=== PATIENT | female | born 1985 | race Asian ===

== ENCOUNTER 2017-02-28 23:06 | Emergency (ER) | payer OTHER ==
[2017-03-01] MEDS ORDERED: Acetaminophen TAB* 325 MG PO ONE (01:44)
--- NOTE | 2017-03-01 01:59 | ED ---
Lower Extremity - HPI Summary HPI Summary: 31F who is 25 weeks presents with left ankle injury today. She was walking down steps when she missed a step and rolled her ankle inward. She denies any numbness or tingling. She denies any previous injury to the area. She has swelling over the lateral aspect of left ankle. She has 4/10 pain. She has not taken anything for pain. pain is worst with ambulation. - History of Current Complaint Chief Complaint: EDExtremityLower Stated Complaint: LEFT ANKLE INJURY 25 WEEKS PREG Time Seen by Provider: 03/01/17 01:35 Pain Intensity: 5 - Allergies/Home Medications Allergies/Adverse Reactions: Allergies Allergy/AdvReac Type Severity Reaction Status Date / Time Sulfamethoxazole Allergy Rash Verified 02/28/17 23:11 w/Trimethoprim [From Bactrim] PMH/Surg Hx/FS Hx/Imm Hx Endocrine/Hematology History: Denies: Hx Anticoagulant Therapy Cardiovascular History: Denies: Hx Hypertension Infectious Disease History: No Infectious Disease History: Denies: Traveled Outside the [place] in Last 30 Days - Family History Known Family History: Positive: Unknown - Social History Alcohol Use: None Substance Use Type: Reports: None Smoking Status (MU): Never Smoked Tobacco Review of Systems Negative: Fever Negative: Chest Pain Negative: Shortness Of Breath Positive: Myalgia - left ankle All Other Systems Reviewed And Are Negative: Yes Physical Exam Triage Information Reviewed: Yes Vital Signs On Initial Exam: Initial Vitals Temp Pulse Resp BP Pulse Ox 99.4 F 86 16 109/69 98 02/28/17 23:09 02/28/17 23:09 02/28/17 23:09 02/28/17 23:09 02/28/17 23:09 Vital Signs Reviewed: Yes Appearance: Positive: Well-Appearing Skin: Positive: Warm, Dry Head/Face: Positive: Normal Head/Face Inspection Eyes: Positive: Normal, Conjunctiva Clear Respiratory/Lung Sounds: Positive: Clear to Auscultation, Breath Sounds Present Cardiovascular: Positive: Normal, RRR Musculoskeletal: Positive: Limited @ - left ankle, Edema Left - lateral, Other - tenderness over lateral aspect left ankle, good pulses, capillary refill<2 secs, sensation grossly intact Neurological: Positive: Normal Psychiatric: Positive: Normal - [place] Coma Scale Coma Scale Total: 15 Procedures - Splinting Location: left ankle Hand-Made Type: orthoglass Splint: sugar-tong Pre-Proc Neuro Vasc Exam: normal Post-Proc Neuro Vasc Exam: normal Diagnostics - Vital Signs Vital Signs Temp Pulse Resp BP Pulse Ox 02/28/17 23:09 99.4 F 86 16 109/69 98 - Laboratory Lab Statement: Any lab studies that have been ordered have been reviewed, and results considered in the medical decision making process. - Radiology ankle Xray Interpretation: Positive (See Comments) - fibula fracture Radiology Interpretation Completed By: ED Physician Lower Extremity Course/Dx - Course Course Of Treatment: 31F who is 25 weeks presents with left ankle injury today. She was walking down steps when she missed a step and rolled her ankle inward. She denies any numbness or tingling. She denies any previous injury to the area. She has swelling over the lateral aspect of left ankle. She has 4/10 pain. She has not taken anything for pain. pain is worst with ambulation. on exam swelling to lateral left ankle, neurovascular intact. xray shows fibula fracture. placed in sugar tong and will have follow up with ortho. patient understand and agrees with plan. - Diagnoses Differential Diagnosis/HQI/PQRI: Positive: Fracture (Closed), Sprain, Strain Provider Diagnoses: Left fibular fracture Discharge - Discharge Plan Condition: Good Disposition: HOME Patient Education Materials: Ankle Fracture (ED) Referrals: Gretel Chen MD [Primary Care Provider] - Bharat Ramírez MD [Medical Doctor] - Additional Instructions: Use crutches and stay nonweight bearing Keep splint on area and keep dry Follow up with ortho Take tyenlol every 6 hours for pain Ice, elevate Return to ED if develop any new or worsening symptoms
[2017-03-01 02:19] VITALS: BP 115/74
--- NOTE | 2017-03-01 08:18 | RAD ---
HISTORY: Left ankle pain COMPARISONS: None VIEWS: 3, Frontal, lateral, and oblique views of the left ankle FINDINGS: BONE DENSITY: Normal. BONES: There is an oblique nondisplaced fracture of the distal fibula. The tibiofibular interval is normal on the submitted projections. JOINTS: There is no arthropathy. ALIGNMENT: There is no dislocation. SOFT TISSUES: Unremarkable. OTHER FINDINGS: None. IMPRESSION: OBLIQUE NONDISPLACED FRACTURE OF THE DISTAL FIBULA
== END 2017-03-01 02:23 | disposition home or self-care (01) ==
LOC: ED 23:06
DX: S82.402A Unspecified fracture of shaft of left fibula, initial encounter for closed fracture (principal); X50.0XXA Overexertion from strenuous movement or load, initial encounter; Y92.9 Unspecified place or not applicable; Z33.1 Pregnant state, incidental
CPT/HCPCS: 99282

== ENCOUNTER 2017-05-26 02:31 | Inpatient (IN) | payer OTHER ==
--- NOTE | 2017-05-26 04:13 | HP ---
General Information - General Information Maternal Age: 31 Grav: 1 Estimated Due Date: 06/08/17 Determined By: LMP Maternal Blood Type and Rh: O Positive - Results this Serology/RPR Result: Non-Reactive Rubella Result: Immune HBsAg Result: Negative HIV Result: Negative GBS Culture Result: Negative Past Medical History Past Medical History Comment: Eczema Fx L leg 02/2017, current air cast/crutches Pertinent Past Surgical History: None Family History Comment: mother with diabetes - Antepartal Records Antepartal Records: Reviewed, Uncomplicated Review of Systems Constitutional: Comfortable CV Complaint: No Respiratory: Shortness of Breath: No Gastrointestinal: No Nausea/Vomiting Genitourinary: Leaking Fluid - SROM 0100 Musculoskeletal: Contractions Neurological: No Headache Movement: Normal Exam Allergies/Adverse Reactions: Allergies MS Sulfamethoxazole w/Trimethoprim [From Bactrim] Allergy (Verified 02/28/17 23: 11) Rash 99.7-95-20 118/78 - Measurements Height: 5 ft 1 in Weight: 149 lb Body Mass Index (BMI): 28.1 Pre- Weight: 117 lb - Exam Abdomen: No Upper Quadrant Pain Breast: - - soft, no masses CVA: No CVA Tenderness Extremities: No Edema Heart: Normal Rhythm/Heart Sounds HEENT: No Significant Findings Lungs: Clear Bilaterally Thyroid: No Thyromegaly - Cervical Exam deferred due to SROM - Abdominal Exam Abdomen Exam Comment: EFW 6.5 lbs - Ultrasound/Biophysical Profile Ultrasound Status: Not Done EFM Findings - External Monitor Findings Baseline Heart Rate: 140 External Monitor Findings: Accelerations Present, No Pattern of Variable or Late Decelerations, Variability Moderate External Monitor Findings Comment: category 1 Contractions: Irregular, Mild, 45-90 Seconds Assessment/Plan - Reason for Visit Reason for Visit: IUP at 38w 1d, SROM, early labor - Plan Plan: Early Labor Plan Comment: reviewed risk of infection over time with SROM, rachel. after 12 hrs., recommendation for pitocin now. Prefers to await active labor for now. Will consent to augmentation if not active by 12 hrs Wants to get in tub
[2017-05-26] MEDS ORDERED: Glycerin ADULT SUPP PR PRN (15:17)
[2017-05-26] MEDS ORDERED: Acetaminophen TAB* 325 MG PO PRN (15:17)
[2017-05-26] MEDS ORDERED: Witch Hazel PAD* JAR TOPICAL PRN (15:17)
[2017-05-26] MEDS ORDERED: Dibucaine 1% 28.35 GM TUBE PR PRN (15:17)
[2017-05-26] MEDS ORDERED: Simethicone TAB* 80 MG TAB.CHEW PO SCH (17:30)
[2017-05-26] MEDS: Ibuprofen TAB* 600 MG PO PRN (18:04)
[2017-05-26] MEDS: Docusate CAP* 100 MG PO SCH (19:59)
[2017-05-27 06:49] LABS: ABS Basophils 0.1 10^3/ul (0-0.2); ABS Eosinophils 0.1 10^3/ul (0-0.6); ABS Lymphocytes 1.7 10^3/ul (1.0-4.8); ABS Monocytes 1.1 10^3/ul (0-0.8); ABS Neutrophils 16.3 10^3/ul (1.5-7.7); ABS Nucleated RBC 0 10^3/ul; Eosinophil % 0.4 % (0-6); Hematocrit 36 % (35-47); Hemoglobin 11.8 g/dl (12.0-16.0); Lymphocyte % 8.8 % (25-47); Mean Corpuscular HGB Conc 33 g/dl (31-36); Mean Corpuscular Hemoglobin 28 pg (27-31); Mean Corpuscular Volume 83 fL (80-97); Mean Platelet Volume 8.3 um3 (7.4-10.4); Nucleated Red Blood Cells % 0; Platelet Count 282 10^3/ul (150-450); Red Blood Count 4.25 10^6/ul (4.0-5.4); Red Cell Distribution Width 15 % (10.5-15); White Blood Count 19.3 10^3/ul (3.5-10.8)
[2017-05-27] MEDS: Docusate CAP* 100 MG PO SCH ×3 (08:31→19:55)
[2017-05-27] MEDS ORDERED: Ferrous Gluconate TAB* 324 MG TAB PO SCH (09:00)
[2017-05-27] MEDS: Ibuprofen TAB* 600 MG PO PRN (19:54)
[2017-05-28 08:01] VITALS: BP 94/68
[2017-05-28] MEDS: Docusate CAP* 100 MG PO SCH ×2 (10:19→14:40)
== END 2017-05-28 18:00 | disposition home or self-care (01) | DRG 775 ==
LOC: MCHOBOUT 02:31 → MCHOB 03:04
PROVIDERS: ADMIT Midwife; ATTEND Midwife
PROC: 10E0XZZ Delivery of Products of Conception, External Approach (ICD-10-PCS; principal; 2017-05-26)
DX: O42.02 Full-term premature rupture of membranes, onset of labor within 24 hours of rupture (principal); Z3A.38 38 weeks gestation of pregnancy; Z37.0 Single live birth
CPT/HCPCS: 36415; 85025; A9270-GY

== ENCOUNTER 2020-11-08 07:41 | Inpatient (IN) ==
[2020-11-08 10:09] LABS: Rapid COVID-19 Molecular Undetected (Undetected)
[2020-11-08 10:26] LABS: Urine Appearance Clear; Urine Bilirubin Negative (Negative); Urine Blood Negative (Negative); Urine Color Colorless; Urine Glucose Negative (Negative); Urine Ketones Negative (Negative); Urine Nitrite Negative (Negative); Urine Protein Negative (Negative); Urine Specific Gravity 1.002 (1.002-1.030); Urine Urobilinogen Negative (Negative)
[2020-11-08 10:27] LABS: Urine Benzodiazepine Screen None Detected (None Detect); Urine Cannabinoids Screen None Detected (None Detect); Urine Opiates Screen None Detected (None Detect)
[2020-11-08] MEDS ORDERED: Dibucaine 1% OINT 28.35 GM TUBE PR PRN (22:01)
[2020-11-08] MEDS ORDERED: witch hazeL 43% TOP.SOLN 200 ML PHA COMPOUND TOPICAL PRN (22:07)
[2020-11-08] MEDS ORDERED: Lactated Ringers 1000 ml BAG 1,000 ML IV SCH (23:00)
[2020-11-09] MEDS ORDERED: Oxytocin 10 UNITS/ML 1 ML VIAL ONE ×2 (00:13→02:15)
[2020-11-09 07:24] LABS: ABS Basophils 0.1 10^3/ul (0-0.2); ABS Eosinophils 0.1 10^3/ul (0-0.6); ABS Lymphocytes 2.1 10^3/ul (1.0-4.8); ABS Monocytes 1.1 10^3/ul (0-0.8); ABS Neutrophils 16.1 10^3/ul (1.5-7.7); Eosinophil % 0.4 %; Hematocrit 38 % (35-47); Hemoglobin 12.5 g/dL (12.0-16.0); Lymphocyte % 10.6 %; Mean Corpuscular HGB Conc 33 g/dL (31-36); Mean Corpuscular Hemoglobin 27 pg (27-31); Mean Corpuscular Volume 84 fL (80-97); Mean Platelet Volume 8.1 fL (7.4-10.4); Platelet Count 334 10^3/uL (150-450); Red Blood Count 4.58 10^6 /uL (3.70-4.87); Red Cell Distribution Width 15 % (10-15); White Blood Count 19.5 10^3/uL (3.5-10.8)
[2020-11-10 08:02] VITALS: BP 106/62
== END 2020-11-10 14:54 | disposition home or self-care (01) | DRG 560 ==
LOC: MCHOBOUT 07:41 → MCHOB 08:42
PROVIDERS: ADMIT Midwife; ATTEND Midwife